=== PATIENT | male | born 1970 | race Two or more races ===

== ENCOUNTER 2018-02-27 15:41 | Emergency (ER) | payer BC ==
[2018-02-27] MEDS ORDERED: Sodium Chloride 0.9% 1,000 ML IV ONE (15:50)
[2018-02-27] MEDS ORDERED: Aspirin 81 MG Tab.Chew PO ONE (15:50)
[2018-02-27] MEDS ORDERED: Sodium Chloride 0.9% 10 ML Syringe FLUSH PRN (15:50)
[2018-02-27] MEDS ORDERED: Sodium Chloride 0.9% 2.5 ML Syringe FLUSH PRN (15:50)
[2018-02-27] MEDS ORDERED: Pantoprazole 40 MG Vial IVPUSH ONE (15:51)
--- NOTE | 2018-02-27 15:57 | EDM.PDOC ---
ED HPI GENERAL MEDICAL PROBLEM - General Chief Complaint: Chest Pain Stated Complaint: CHEST PAIN Time Seen by Provider: 02/27/18 15:44 - History of Present Illness INITIAL COMMENTS - FREE TEXT/NARRATIVE: HISTORY AND PHYSICAL: History of present illness: The patient is a 47-year-old male with no stated medical history and no cardiac or pulmonary history who presents with a one month history of episodic chest pain. He says that the episodes will happen throughout the day and can be at rest or with activity but are not is specifically associated with activity. He says achiness with a burning is midsternal but does not radiate. It is frequently associated with shortness of breath but no nausea vomiting diaphoresis or syncope. The patient says he never has episodes when he is sleeping and he never awakes with the discomfort. The patient says that he chose to come here today because his boss scared him into being evaluated. The patient has no known family history but he doesn't know much history about his mother. The patient does not smoke cigarettes nor does he use drugs but he does drink a sixpack of beer every night after work. He has no history of GI problems such as acid reflux increased burping or epigastric discomfort and he takes no prescription medications for any medical problems. The patient says he has had no vomiting or diarrhea no abdominal pain no flank pain no head neck or back pain. Is no swelling in his legs and no recent long trips. Patient says that when he gets this pain he does not take anything to get it to go away it just resolves spontaneously and he did not take any medications today. Today's episode not different than any prior episode. He rates his discomfort right now as a 6/10. Patient denies any pulmonary complaints just cough congestion and does not have shortness of breath when he is sleeping. The patient does do strenuous work on the [employer] and says that he doesn't always get discomfort when he is doing strenuous activity he can occur at any time. The patient states that he does drink 1 pop a day and occasionally will have a power drink but he does not feel that he drinks excessive caffeine. The patient does eat on the go with fast foods junk foods spicy and fatty foods on a regular basis but he has no history of food intolerance Review of systems: As per history of present illness and below otherwise all systems reviewed and negative. Past medical history: As per history of present illness and as reviewed below otherwise noncontributory. Surgical history: As per history of present illness and as reviewed below otherwise noncontributory. Social history: No reported history of drug or alcohol abuse. Family history: As per history of present illness and as reviewed below otherwise noncontributory. Physical exam: General: Well-developed well-nourished man who is nontoxic and speaking clearly in the ED. Signs are noted by me and the patient ambulated into the ED without distress. He is not breathless HEENT: Atraumatic, normocephalic, pupils reactive, negative for conjunctival pallor or scleral icterus, mucous membranes moist, throat clear, neck supple, nontender, trachea midline. Lungs: Clear to auscultation, breath sounds equal bilaterally, chest nontender. No worker breathing or sensory muscle use and no defects crepitus or deformities of the chest wall are appreciated. Heart: S1S2, regular, negative for clicks, rubs, or JVD. Abdomen: Soft, nondistended, nontender. Negative for masses or hepatosplenomegaly. NABS Pelvis: Stable nontender. Genitourinary: Deferred. Rectal: Deferred. Extremities: Atraumatic, negative for cords or calf pain. Neurovascular unremarkable. No pedal edema or leg asymmetry Neuro: Awake, alert, oriented. Cranial nerves II through XII unremarkable. Cerebellum unremarkable. Motor and sensory unremarkable throughout. Exam nonfocal. Skin: There is no diaphoresis, turgor is normal and there are no overt rashes or lesions appreciated Diagnostics: EKG chest x-ray CBC CMP amylase lipase troponin INR magnesium level H. pylori Therapeutics: IV O2 monitor aspirin nitroglycerin Protonix After 3 sublingual nitros the patient says his pain is completely gone. We will place Nitropaste and continue to monitor the patient's testing results 1701: All testing results were discussed with the patient as well as with our hospitalist Dr. Toussaint. The patient is aware of some of the limitations of this admission and workup and that he will have to get an outpatient stress test. The patient says that he is traveling home in about 10 days and that he only works here locally. After much discussion I have expressed my concerns to the patient and the need for observation admission but he states that if the workup cannot be completed and he can be completely released by the hospitalist to return to work for full duty that he would liked to go to [facility] in [place] to be re-seen/evaluated. I discussed the case with the hospitalist who told me that he would not be able to clear the patient for full duty but only light work load and the patient says that this is not acceptable with his work. He again states understanding of my concerns and the risks in doing this and would like to be discharged to pursue care at [facility] in [place]. I will notify the ER physician there of this case as a courtesy and the patient is appreciative. Impression: Chest pain rule out ACS declining admission Definitive disposition and diagnosis as appropriate pending reevaluation and review of above. chest Pain Score (Numeric/FACES): 5 - Related Data Allergies Allergy/AdvReac Type Severity Reaction Status Date / Time No Known Allergies Allergy Verified 02/27/18 15:49 Home Meds: Home Meds . [No Known Home Meds] 02/27/18 [History] Past Medical History Cardiovascular History: Reports: High Cholesterol Social & Family History - Family History Endocrine/Metabolic: Reports: Diabetes, Type I - Tobacco Use Smoking Status *Q: Never Smoker Second Hand Smoke Exposure: No - Caffeine Use Caffeine Use: Reports: Energy Drinks, Soda - Alcohol Use Days Per Week of Alcohol Use: 7 Number of Drinks Per Day: 6 Total Drinks Per Week: 42 - Recreational Drug Use Recreational Drug Use: No ED ROS GENERAL - Review of Systems Review Of Systems: ROS reveals no pertinent complaints other than HPI. ED EXAM, GENERAL - Physical Exam Exam: See Below (see dictation) Course - Vital Signs Last Recorded V/S: Last Vital Signs Temp 36.7 C 02/27/18 15:43 Pulse 88 02/27/18 16:26 Resp 18 02/27/18 16:26 BP 132/85 02/27/18 16:26 Pulse Ox 99 02/27/18 16:26 - Orders/Labs/Meds Orders: Active Orders 24 hr Category Date Time Status Cardiac Monitoring [RC] . DIRECTED Care 02/27/18 15:49 Active EKG 12 Lead [EKG Documentation Completion] [RC] STAT Care 02/27/18 15:48 Active Oxygen Therapy, ED [RC] ASDIRECTED Care 02/27/18 15:49 Active Pulse Oximetry [RC] ASDIRECTED Care 02/27/18 15:49 Active Sodium Chloride 0.9% [Saline Flush] Med 02/27/18 15:50 Active 10 ml FLUSH ASDIRECTED PRN Sodium Chloride 0.9% [Saline Flush] Med 02/27/18 15:50 Active 2.5 ml FLUSH ASDIRECTED PRN Saline Lock Insert [OM.PC] Stat Oth 02/27/18 15:49 Ordered Medication Orders Sodium Chloride (Saline Flush) 10 ml FLUSH ASDIRECTED PRN PRN Reason: Keep Vein Open Sodium Chloride (Saline Flush) 2.5 ml FLUSH ASDIRECTED PRN PRN Reason: Keep Vein Open Labs: Laboratory Tests 02/27/18 02/27/18 02/27/18 Range/Units 15:50 15:50 15:50 WBC 7.56 (4.0-11.0) K/uL RBC 4.86 (4.50-5.90) M/uL Hgb 15.4 (13.0-17.0) g/dL Hct 43.6 (38.0-50.0) % MCV 89.7 (80.0-98.0) fL MCH 31.7 (27.0-32.0) pg MCHC 35.3 (31.0-37.0) g/dL RDW Std Deviation 40.5 (28.0-62.0) fl RDW Coeff of Vick 13 (11.0-15.0) % Plt Count 268 (150-400) K/uL MPV 10.20 (7.40-12.00) fL Neut % (Auto) 58.3 (48.0-80.0) % Lymph % (Auto) 27.9 (16.0-40.0) % [place] % (Auto) 10.7 (0.0-15.0) % Eos % (Auto) 2.2 (0.0-7.0) % Baso % (Auto) 0.9 (0.0-1.5) % Neut # (Auto) 4.4 (1.4-5.7) K/uL Lymph # (Auto) 2.1 (0.6-2.4) K/uL [place] # (Auto) 0.8 (0.0-0.8) K/uL Eos # (Auto) 0.2 (0.0-0.7) K/uL Baso # (Auto) 0.1 (0.0-0.1) K/uL Nucleated RBC % 0.0 /100WBC Nucleated RBCs # 0 K/uL INR 0.99 Sodium 140 (136-148) mmol/L Potassium 3.5 (3.5-5.1) mmol/L Chloride 103 (98-107) mmol/L Carbon Dioxide 25.8 (21.0-32.0) mmol/L BUN 13 (7.0-18.0) mg/dL Creatinine 0.9 (0.8-1.3) mg/dL Est Cr Clr Drug Dosing 89.21 mL/min Estimated GFR (MDRD) > 60.0 ml/min Glucose 100 (74-106) mg/dL Calcium 9.8 (8.5-10.1) mg/dL Magnesium 2.0 (1.5-2.0) mg/dL Total Bilirubin 0.5 (0.2-1.0) mg/dL AST 33 (15-37) IU/L ALT 72 H (14-63) IU/L Alkaline Phosphatase 95 (46-116) U/L Troponin I < 0.050 (0.000-0.056) ng/mL Total Protein 8.3 H (6.4-8.2) g/dL Albumin 4.4 (3.4-5.0) g/dL Globulin 3.9 H (2.0-3.5) g/dL Albumin/Globulin Ratio 1.1 L (1.3-2.8) Amylase 59 (25-115) U/L Lipase 164 (73-393) U/L H. pylori IgG Antibody (NEG) 02/27/18 Range/Units 15:50 WBC (4.0-11.0) K/uL RBC (4.50-5.90) M/uL Hgb (13.0-17.0) g/dL Hct (38.0-50.0) % MCV (80.0-98.0) fL MCH (27.0-32.0) pg MCHC (31.0-37.0) g/dL RDW Std Deviation (28.0-62.0) fl RDW Coeff of Vick (11.0-15.0) % Plt Count (150-400) K/uL MPV (7.40-12.00) fL Neut % (Auto) (48.0-80.0) % Lymph % (Auto) (16.0-40.0) % [place] % (Auto) (0.0-15.0) % Eos % (Auto) (0.0-7.0) % Baso % (Auto) (0.0-1.5) % Neut # (Auto) (1.4-5.7) K/uL Lymph # (Auto) (0.6-2.4) K/uL [place] # (Auto) (0.0-0.8) K/uL Eos # (Auto) (0.0-0.7) K/uL Baso # (Auto) (0.0-0.1) K/uL Nucleated RBC % /100WBC Nucleated RBCs # K/uL INR Sodium (136-148) mmol/L Potassium (3.5-5.1) mmol/L Chloride (98-107) mmol/L Carbon Dioxide (21.0-32.0) mmol/L BUN (7.0-18.0) mg/dL Creatinine (0.8-1.3) mg/dL Est Cr Clr Drug Dosing mL/min Estimated GFR (MDRD) ml/min Glucose (74-106) mg/dL Calcium (8.5-10.1) mg/dL Magnesium (1.5-2.0) mg/dL Total Bilirubin (0.2-1.0) mg/dL AST (15-37) IU/L ALT (14-63) IU/L Alkaline Phosphatase (46-116) U/L Troponin I (0.000-0.056) ng/mL Total Protein (6.4-8.2) g/dL Albumin (3.4-5.0) g/dL Globulin (2.0-3.5) g/dL Albumin/Globulin Ratio (1.3-2.8) Amylase (25-115) U/L Lipase (73-393) U/L H. pylori IgG Antibody NEGATIVE (NEG) Meds: Medications Generic Name Dose Route Start Last Admin Trade Name Freq PRN Reason Stop Dose Admin Sodium Chloride 10 ml 02/27/18 15:50 Saline Flush FLUSH ASDIRECTED PRN Keep Vein Open Sodium Chloride 2.5 ml 02/27/18 15:50 Saline Flush FLUSH ASDIRECTED PRN Keep Vein Open Discontinued Medications Generic Name Dose Route Start Last Admin Trade Name Freq PRN Reason Stop Dose Admin Aspirin 324 mg 02/27/18 15:50 02/27/18 15:58 Aspirin PO 02/27/18 15:51 324 mg ONETIME ONE Administration Sodium Chloride 1,000 mls @ 999 mls/hr 02/27/18 15:50 02/27/18 16:10 Normal Saline IV 02/27/18 16:50 999 mls/hr STAT ONE Administration Nitroglycerin 0.4 mg 02/27/18 15:50 02/27/18 16:12 Nitrostat SL 0.4 mg Q5M PRN Administration Chest Pain Nitroglycerin 0.5 gm 02/27/18 16:18 02/27/18 16:26 Nitro-Bid 2% TOP 02/27/18 16:19 0.5 gm ONETIME ONE Administration Pantoprazole Sodium 40 mg 02/27/18 15:51 02/27/18 15:58 Protonix Iv IVPUSH 02/27/18 15:52 40 mg NOW ONE Administration Departure - Departure Time of Disposition: 17:18 Disposition: Home, Self-Care 01 Condition: Good Clinical Impression: Chest pain Qualifiers: Chest pain type: unspecified Qualified Code(s): R07.9 - Chest pain, unspecified - Discharge Information Forms: ED Department Discharge Additional Instructions: The following information is given to patients seen in the emergency department who are being discharged to home. This information is to outline your options for follow-up care. We provide all patients seen in our emergency department with a follow-up referral. The need for follow-up, as well as the timing and circumstances, are variable depending upon the specifics of your emergency department visit. If you don't have a primary care physician on staff, we will provide you with a referral. We always advise you to contact your personal physician following an emergency department visit to inform them of the circumstance of the visit and for follow-up with them and/or the need for any referrals to a consulting specialist. The emergency department will also refer you to a specialist when appropriate. This referral assures that you have the opportunity for followup care with a specialist. All of these measure are taken in an effort to provide you with optimal care, which includes your followup. Under all circumstances we always encourage you to contact your private physician who remains a resource for coordinating your care. When calling for followup care, please make the office aware that this follow-up is from your recent emergency room visit. If for any reason you are refused follow-up, please contact the [facility] emergency department at and ask to speak to the emergency department charge nurse. [facility] Primary care- Internal Medicine and Family [address] [address] Please call and follow-up with one of our clinic providers in the next 1-2 days and return to ER if you would like to opt for admission here for cardiac evaluation. Please take aspirin 325 mg daily if you are not seen by another provider and bring all paperwork that you have been given this evening to [facility] if you choose to go there. - My Orders Last 24 Hours: My Active Orders 02/27/18 15:48 EKG 12 Lead [EKG Documentation Completion] [RC] STAT 02/27/18 15:49 Cardiac Monitoring [RC] . DIRECTED Oxygen Therapy, ED [RC] ASDIRECTED Pulse Oximetry [RC] ASDIRECTED Saline Lock Insert [OM.PC] Stat 02/27/18 15:50 Sodium Chloride 0.9% [Saline Flush] 10 ml FLUSH ASDIRECTED PRN Sodium Chloride 0.9% [Saline Flush] 2.5 ml FLUSH ASDIRECTED PRN - Assessment/Plan Last 24 Hours: My Active Orders 02/27/18 15:48 EKG 12 Lead [EKG Documentation Completion] [RC] STAT 02/27/18 15:49 Cardiac Monitoring [RC] . DIRECTED Oxygen Therapy, ED [RC] ASDIRECTED Pulse Oximetry [RC] ASDIRECTED Saline Lock Insert [OM.PC] Stat 02/27/18 15:50 Sodium Chloride 0.9% [Saline Flush] 10 ml FLUSH ASDIRECTED PRN Sodium Chloride 0.9% [Saline Flush] 2.5 ml FLUSH ASDIRECTED PRN
[2018-02-27] MEDS: Nitroglycerin 0.4 MG Tab.SL SL PRN ×3 (16:00→16:12)
[2018-02-27] MEDS ORDERED: Nitroglycerin 2% Oint 1 GM UD Packet TOP ONE (16:18)
[2018-02-27 16:26] LABS: CHLORIDE,CL 103 mmol/L (98-107); SODIUM,NA 140 mmol/L (136-148)
--- NOTE | 2018-02-27 16:35 | CR ---
EXAMINATION: Portable chest radiograph. HISTORY: Shortness of breath. FINDINGS: The trachea is midline. The cardiomediastinal silhouette is within normal limits. No pulmonary infilt rates, effusions or pneumothorax. Osseous structures appear unremarkable. IMPRESSION: No acute cardiopulmonary process.
== END 2018-02-27 17:38 | disposition home or self-care (01) ==
LOC: MW.ED 15:41
DX: R07.9 Chest pain, unspecified (principal)
CPT/HCPCS: 36415; 71045; 80053; 82150; 83690; 83735; 84484; 85025; 85610; 86677; 99285; A9270; C9113; J7040